=== PATIENT | female | born 1980 | race Caucasian/White ===

== ENCOUNTER → 2022-03-19 09:22 | Outpatient (CLI) | payer OTHER, SELFPAY ==
--- NOTE | 2022-03-19 09:31 | US_ITS ---
FINAL REPORT CLINICAL HISTORY: ABD PAIN FINDINGS: Sonographic images of the right upper quadrant were obtained. The pancreas is partially obscured. There is a 2.5 cm hepatic cyst. There are multiple hepatic masses measuring up to 5.7 cm which do not appear to be cysts, hepatic metastases or other neoplasm is not excluded. There are right renal cysts measuring 1.3 cm and 1.4 cm. The gallbladder surgically absent. The common duct measures 4 mm. IMPRESSION: Hepatic masses, may represent hepatic metastases or other neoplasm. This could be further evaluated with liver mass protocol CT or MRI. Hepatic and renal cysts. Patient's nurse, Viviane Rausch was notified of findings on 03/19/2022 at 12:10 p.m. Reviewed, Interpreted and Dictated by Delfino Rodríguez III, MD Transcribed by Kavita Benavidez Authenticated and [facility]
--- NOTE | 2022-03-19 09:31 | US_ITS ---
FINAL REPORT CLINICAL HISTORY: IRREGULAR BLLEDING FINDINGS: Transvaginal sonographic images of the pelvis were obtained. The uterus measures 8.5 x 3.7 x 5.3 cm. The right ovary measures 2.4 x 1.9 x 1.5 cm. The left ovary measures 3.4 x 2.0 x 1.4 cm. The endometrium measures 4 mm. Small follicles are seen in both ovaries. Flow is seen to both ovaries. IMPRESSION: Small follicles bilaterally. Reviewed, Interpreted and Dictated by Delfino Rodríguez III, MD Transcribed by Kavita Benavidez Authenticated and [facility]
[2022-03-19 12:23] LABS: Basophils # 0.1 K/mm3 (0-0.2); Basophils % 1.4 % (0.1-2.0); Eosinophils # 0.1 K/mm3 (0.0-0.4); Eosinophils % 1.2 % (0.1-12.0); Hematocrit 45.3 % (37.0-47.0); Hemoglobin 14.6 g/dL (12.2-16.2); Lymphocytes # 2.4 K/mm3 (0.7-4.5); Lymphocytes % 30.4 % (10-50); Mean Corpuscular HGB Conc 32.2 g/dL (31.8-35.4); Mean Corpuscular Hemoglobin 30.1 pg (27.0-31.2); Mean Corpuscular Volume 93.5 fl (81-99); Monocytes # 0.4 K/mm3 (0.1-1.0); Monocytes % 4.8 % (1.7-9.3); Neutrophils # 4.9 K/mm3 (1.8-7.8); Neutrophils % 62.1 % (37.0-80.0); Platelet Count 357 K/mm3 (142-424); Red Blood Count 4.84 M/mm3 (4.20-5.40); Red Cell Distribution Width 14.3 % (11.5-17.5); White Blood Count 7.8 K/mm3 (4.8-10.8)
[2022-03-19 12:32] LABS: Alanine Aminotransferase 36 U/L (12-78); Albumin Level 4.5 g/dl (3.5-5.0); Alkaline Phosphatase 160 U/L (38-126); Anion Gap 9.5 mEq/L (5-15); Aspartate Amino Transferase 86 U/L (14-36); Bilirubin,Total 0.3 mg/dl (0.2-1.3); Blood Urea Nitrogen 11 mg/dl (7-17); Calcium 9.9 mg/dl (8.4-10.2); Carbon Dioxide 30 mmol/L (22.0-30.0); Chloride 105 mmol/L (98-107); Estimated Glomerular Filt Rate 93 ml/min (>60); GFR (African American) 112 ML/MIN (>60); Globulin 2.3 g/dL (1.3-3.2); Glucose 90 mg/dl (74-100); Potassium 4.5 mmoL/L (3.5-5.1); Sodium 140 mmol/L (136-145); Total Protein,Serum 6.8 g/dl (6.3-8.2)
[2022-03-19 12:33] LABS: Amylase 74 U/L (30-110); Lipase 163 U/L (23-300)
[2022-03-19 13:02] LABS: Thyroid Stimulating Hormone 0.59 uIU/mL (0.465-4.68)
[2022-03-20 10:13] LABS: FSH 6.7 mIU/mL (.); HIV Screen 4th Generation wRfx Non Reactive (Non Reactive); LH 8.7 mIU/mL (.); Progesterone 0.4 ng/mL (.)
[2022-03-24 02:18] LABS: ALT (SGPT) P5P 39 IU/L (0-40); Alpha 2-Macroglobulins, Qn 247 mg/dL (110-276); Apolipoprotein A-1 162 mg/dL (116-209); Bilirubin, Total 0.3 mg/dL (0.0-1.2); Fibrosis Score 0.22 (0.00-0.21); Fibrosis Stage F0-F1 (.); GGT 234 IU/L (0-60); Haptoglobin 175 mg/dL (33-278); Necroinflammat Activity Grade A0-A1 (.); Necroinflammat Activity Score 0.19 (0.00-0.17)
[2022-03-24 09:45] LABS: HCV Genotype Charge YES; Hepatitis C Genotype 1a (.)
[2022-03-30 21:28] LABS: Hep A Ab, Total NEGATIVE
[2022-03-30 21:29] LABS: Hep B Core Ab, Total NEGATIVE; Hep B Surface Ab, Qual NON REACTIVE; Hepatitis B Surface Antigen NEGATIVE; Hepatitis C Antibody >11.0
== END ==
PROVIDERS: Emergency Medicine; Obstetrics & Gynecology; PCP Nurse Practitioner Family; Visit Provider Nurse Practitioner Family
DX: R10.9 Unspecified abdominal pain (principal); B19.20 Unspecified viral hepatitis C without hepatic coma; N93.8 Other specified abnormal uterine and vaginal bleeding; F41.9 Anxiety disorder, unspecified
CPT/HCPCS: 36415; 76705; 76830; 80053; 81596; 82150; 83001; 83002; 83690; 84144; 84443; 85025; 86703; 86704; 86706; 86708; 87340; 87380; 87522; 87902; G0432

== ENCOUNTER → 2022-04-01 08:01 | Outpatient (CLI) | payer OTHER, SELFPAY | PROVIDERS: PCP Nurse Practitioner Family; Visit Provider Nurse Practitioner Family | DX: R93.2 Abnormal findings on diagnostic imaging of liver and biliary tract (principal) ==

== ENCOUNTER → 2022-04-07 09:54 | Outpatient (CLI) | payer OTHER, SELFPAY ==
--- NOTE | 2022-04-07 09:54 | MR_ITS ---
FINAL REPORT CLINICAL HISTORY: liver mass protocol swelling under right breast and pain x 2 weeks abnormal us pt also has hep c FINDINGS: Multiplanar MR imaging of the abdomen was performed without and with contrast. There are at least 10 solid hepatic masses. Largest mass measures up to 7 mm. These masses demonstrate peripheral enhancement on arterial phase which increases over time. These do not appear to represent hemangiomas. Differentials would be multifocal HCC versus metastatic disease. There is no evidence of biliary ductal dilatation. The gallbladder has an unremarkable appearance. There are numerous bilateral renal cysts. IMPRESSION: Multiple solid hepatic masses with differentials of multifocal HCC versus metastatic disease. Reviewed, Interpreted and Dictated by Delfino Rodríguez III, MD Transcribed by Ravi Taylor Authenticated and [facility]
== END ==
PROVIDERS: PCP Nurse Practitioner Family; Visit Provider Nurse Practitioner Family
DX: R93.2 Abnormal findings on diagnostic imaging of liver and biliary tract (principal)
CPT/HCPCS: 74183; A9576

== ENCOUNTER 2022-06-29 01:28 | Emergency (ER) | payer OTHER, SELFPAY ==
--- NOTE | 2022-06-29 01:25 | ECG_ITS ---
APPROVED REPORT Exam: Resting ECG HR:81 bpm ECG Measurements Heart Rate 81 AXES VA 117 P 43 QRSd 82 QRS 69 QT 377 T 32 QTc 414 Conclusion SINUS RHYTHM WITH SHORT VA INTERVAL BORDERLINE ECG UNCONFIRMED REPORT Electronically signed by : Efren Wall MD 06/29/2022 19:47:33
[2022-06-29 01:29] VITALS: BP 145/97; PULSE 89; RESP 16; TEMP 37.2; O2SAT 99; BMI 29.2
--- NOTE | 2022-06-29 01:59 | CT_ITS ---
PROCEDURE INFORMATION: Exam: CT Abdomen And Pelvis With Contrast Exam date and time: 06/29/2022 2:47 AM Age: 42 years old Clinical indication: Abdominal pain; Additional info: Neck pain/swelling. Possible infection TECHNIQUE: Imaging protocol: Computed tomography of the abdomen and pelvis with contrast. 3D rendering (Not supervised by radiologist): MIP and/or 3D reconstructed images were created by the technologist. Radiation optimization: All CT scans at this facility use at least one of these dose optimization techniques: automated exposure control; mA and/or kV adjustment per patient size (includes targeted exams where dose is matched to clinical indication); or iterative reconstruction. Contrast material: ISOVUE; Contrast volume: 100 ml; Contrast route: IV; REPORTING DATA: Count of CT and Cardiac NM exams in prior 12 months: This patient has received 2 known CTs and 0 known cardiac nuclear medicine studies in the 12 months prior to the current study. COMPARISON: MR ABDOMEN WO/W CON 04/07/2022 10:22 AM FINDINGS: Liver: Exam was performed in arterial phase which limits assessment of solid organs. There are numerous large lobulated masses throughout the liver. Allowing for differences in technique, these appear larger than on the prior exam in March of this year. Telegraph Inspector lesion in the posterior segment right hepatic lobe measures 8.1 cm in diameter, previously 6.4 cm on MR. Overall liver volume his increased. Liver measures 24 cm in length, previously 18 cm. The enlarged left hepatic lobe exerts mass effect on the stomach, pancreas, and to a lesser extent the kidneys. Gallbladder and bile ducts: Prior cholecystectomy. No biliary tree dilation. Pancreas: See Liver finding. Spleen: Normal. No splenomegaly. Adrenal glands: Normal configuration. Kidneys and ureters: See Liver finding. Stomach and bowel: See Liver finding. Appendix: Normal appendix is confirmed. Intraperitoneal space: No free air. No significant fluid collection. Vasculature: On this arterial phase exam, patency of the portal vein cannot be assured. Lymph nodes: No enlarged lymph nodes. Urinary bladder: Unremarkable as visualized. Reproductive: Physiologic appearance for age. Bones/joints: No destructive bony lesions are seen. Soft tissues: Multiple low-attenuation nodular foci are seen in the medullary pyramids of both kidneys compatible with cysts as demonstrated on prior MR. Tiny fat containing umbilical hernia. IMPRESSION: 1. Exam demonstrates substantial progression of hepatic multifocal primary or metastatic disease, now with severe hepatomegaly which has progressed when compared to the prior. The enlarged left hepatic lobe exerts mass effect on the stomach and pancreas which could be symptomatic. 2. Medullary cystic renal disease. Correlate with family history. 3. No findings of acute intra-abdominal infection. COMMENTS: Consistent with the [employer]'s Incidental Findings Committee white paper (J Am Ewa Radiol 2018): Any incidental renal lesion less than 1 cm or classified as too small to characterize, or any incidental cystic renal lesion characterized as simple-appearing, is likely benign. No follow-up imaging is recommended for these lesions per consensus recommendations based on imaging criteria.
--- NOTE | 2022-06-29 01:59 | CT_ITS ---
PROCEDURE INFORMATION: Exam: CT Neck With Contrast Exam date and time: 06/29/2022 2:52 AM Age: 42 years old Clinical indication: Neck pain; Additional info: Neck pain/swelling. Possible infection TECHNIQUE: Imaging protocol: Computed tomography of the neck with contrast. Radiation optimization: All CT scans at this facility use at least one of these dose optimization techniques: automated exposure control; mA and/or kV adjustment per patient size (includes targeted exams where dose is matched to clinical indication); or iterative reconstruction. Contrast material: ISOVUE; Contrast volume: 100 ml; Contrast route: IV; REPORTING DATA: Count of CT and Cardiac NM exams in prior 12 months: This patient has received 2 known CTs and 0 known cardiac nuclear medicine studies in the 12 months prior to the current study. COMPARISON: CT ANGIO CHEST PE PROTOCOL 06/29/2022 2:47 AM FINDINGS: Tubes, catheters and devices: Right internal jugular port type catheter is partly visualized. Brain: Visualized intracranial structures appear normal. Cerebral ventricles: Cavum septum flew system. Pharynx: Normal fossa of Rosenmuller. Normal tonsillar pillars. Larynx: Normal sharp epiglottis. Normal vocal folds. Prevertebral and retropharyngeal spaces: Unremarkable. Salivary glands: Normal. Glands are normal in size. Thyroid: Homogeneous thyroid. Lymph nodes: Unremarkable. No lymphadenopathy. Trachea: Visualized trachea is unremarkable. Lungs: 6 mm nodule noted in the right upper lobe. Bones/joints: Unremarkable. No acute fracture. Soft tissues: Unremarkable. No significant soft tissue swelling. IMPRESSION: 1. No site of infection is evident in the neck. Soft tissue planes are normal. No abnormal fluid collections or gas. 2. Incidental note made 6 mm right upper lobe nodule. For patients at low risk (minimal or absent history of smoking and of other known risk factors), no routine follow-up is indicated. For patients at high risk (history of smoking or of other known risk factors), consider optional CT Chest at 12 months. (Reference: Kelle) REFERENCES: Kelle Hernandez et al. Guidelines for Management of Incidental Pulmonary Nodules Detected on CT Images: From the Fleischner Society 2017. Radiology. 2017;284(1):228-243.
--- NOTE | 2022-06-29 01:59 | CT_ITS ---
PROCEDURE INFORMATION: Exam: CTA Chest With Contrast Exam date and time: 06/29/2022 2:47 AM Age: 42 years old Clinical indication: Pain; Chest pressure; Additional info: Chest pain. Neck pain/swelling. Possible infection TECHNIQUE: Imaging protocol: Computed tomographic angiography of the chest with contrast. 3D rendering (Not supervised by radiologist): MIP and/or 3D reconstructed images were created by the technologist. Radiation optimization: All CT scans at this facility use at least one of these dose optimization techniques: automated exposure control; mA and/or kV adjustment per patient size (includes targeted exams where dose is matched to clinical indication); or iterative reconstruction. Contrast material: ISOVUE; Contrast volume: 100 ml; Contrast route: INTRAVENOUS (IV); REPORTING DATA: Count of CT and Cardiac NM exams in prior 12 months: This patient has received 2 known CTs and 0 known cardiac nuclear medicine studies in the 12 months prior to the current study. COMPARISON: MR ABDOMEN WO/W CON 04/07/2022 10:22 AM FINDINGS: Tubes, catheters and devices: Right internal jugular port type catheter tip projects over the superior vena cava. Pulmonary arteries: Normal caliber pulmonary artery tree without visible filling defects. Aorta: Normal caliber thoracic aorta M without evidence of dissection. Lungs: There are multiple pulmonary nodules throughout both lungs. Vessel Scrapper nodule in the right upper lobe measures 6 mm in diameter. There is diffuse bronchial wall thickening with bronchial luminal narrowing. No airspace disease. Pleural spaces: Unremarkable. No pneumothorax. No pleural effusion. Heart: Heart size is normal. Lymph nodes: Unremarkable. No enlarged lymph nodes. Diaphragm: Tiny hiatal hernia. Bones/joints: No destructive bony lesions. Soft tissues: Unremarkable. IMPRESSION: 1. Normal thoracic aorta. No findings of acute pulmonary embolism. 2. Multiple pulmonary nodules are compelling for metastatic disease. 3. There are findings of acute bronchitis. No airspace disease to suggest secondary pneumonia.
[2022-06-29 02:00] VITALS: BP 142/96; PULSE 77; RESP 16; O2SAT 97
[2022-06-29 02:10] LABS: Coronavirus 19, PCR Not Detected (NotDetected); Influenza A, PCR Not Detected (NotDetected); Influenza B, PCR Not Detected (NotDetected)
[2022-06-29 02:12] LABS: Basophils # 0.1 K/mm3 (0-0.2); Basophils % 0.6 % (0.1-2.0); Eosinophils # 0.1 K/mm3 (0.0-0.4); Eosinophils % 0.4 % (0.1-12.0); Hematocrit 32.8 % (37.0-47.0); Hemoglobin 10.4 g/dL (12.2-16.2); Lymphocytes # 1.9 K/mm3 (0.7-4.5); Lymphocytes % 13.7 % (10-50); Mean Corpuscular HGB Conc 31.6 g/dL (31.8-35.4); Mean Corpuscular Hemoglobin 28.2 pg (27.0-31.2); Mean Corpuscular Volume 89.3 fl (81-99); Mean Platelet Volume 8.4 fl (7.4-10.4); Monocytes # 0.7 K/mm3 (0.1-1.0); Monocytes % 5.2 % (1.7-9.3); Neutrophils # 10.9 K/mm3 (1.8-7.8); Neutrophils % 80.2 % (37.0-80.0); Platelet Count 553 K/mm3 (142-424); Red Blood Count 3.67 M/mm3 (4.20-5.40); White Blood Count 13.6 K/mm3 (4.8-10.8)
[2022-06-29 02:14] LABS: Alanine Aminotransferase 24 U/L (12-78); Albumin Level 3.9 g/dl (3.5-5.0); Albumin/Globulin Ratio 1.4 (1.1-1.8); Alkaline Phosphatase 1341 U/L (38-126); Anion Gap 10.1 mEq/L (5-15); Aspartate Amino Transferase 128 U/L (14-36); Bilirubin,Total 0.8 mg/dl (0.2-1.3); Blood Urea Nitrogen 15 mg/dl (7-17); Calcium 8.8 mg/dl (8.4-10.2); Carbon Dioxide 28 mmol/L (22.0-30.0); Chloride 103 mmol/L (98-107); Creatinine Clearance Estimated 180 mL/min (50-200); Estimated Glomerular Filt Rate 136 ml/min (>60); GFR (African American) 165 ML/MIN (>60); Globulin 2.7 g/dL (1.3-3.2); Glucose 106 mg/dl (74-100); Lactic Acid 1.6 mmol/L (0.7-2.1); Potassium 4.1 mmoL/L (3.5-5.1); Sodium 137 mmol/L (136-145); Total Protein,Serum 6.6 g/dl (6.3-8.2)
[2022-06-29 02:19] LABS: C-Reactive Protein 5.6 mg/L (0-4)
[2022-06-29 02:30] VITALS: BP 132/92; PULSE 83; RESP 30; O2SAT 98
[2022-06-29 02:33] LABS: Procalcitonin 0.203 ng/mL (0.0-2.0)
[2022-06-29 02:39] LABS: Troponin I < 0.01 ng/ml (0.00-0.034)
--- NOTE | 2022-06-29 02:42 | PC.NURSE ---
patient gone to CT at this time.
[2022-06-29 02:49] LABS: Erythrocyte Sedimentation Rate 74 mm/hr (0-20)
[2022-06-29 02:58] LABS: Ammonia 18 umol/L (9-30)
--- NOTE | 2022-06-29 03:09 | PC.NURSE ---
in room with patient at this time.
--- NOTE | 2022-06-29 03:14 | HMH.EDGENADL ---
Discharge Plan Disposition Patient Disposition: Home, Self-Care Chief Complaint: PAIN Prescriptions Prescriptions: No Action No Known Home Medications Referrals Follow up/Referrals: Loraine Moore APRN [Primary Care Provider] - See instructions Clinical Impressions Clinical Impression: Liver masses, Abdominal pain Instructions Patient Instructions: DI for Acute Pain -- Adult Discharge ED Provider: Pankaj AGUILA)Rigoberto General Adult HPI General Chief complaint: PAIN Stated complaint: chest pain Time Seen by Provider: 06/29/22 03:14 Mode of Arrival: Ambulatory Source of Information: Patient, Spouse and Medical Record Limitations: No Limitations Description of Symptoms (Recalled from ER Triage Doc. by RN): 42 F presents with pain to her right neck and anterior chest wall r/t a port she had placed at for cancer treatment. Denies SOA or other cardiac complaints. NAD, VSS on arrival. Mild erythema and eccymosis noted to this area. Patient reports abdominal pain and swelling which isn't new; however, it's worsening. 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 She was sent home with Valium 5mg #5 and Oxycodone 5mg #25 which she is requesting refills for. These were filled on June 17 History of Present Illness HPI narrative: recent placed port rt ant chest about 7 days ago - pt has liver mets with possible primary gi - Onset (ago): hour(s) Location: chest Severity: moderate Associated symptoms: denies other symptoms Related Data Home Medications Medication Instructions Recorded Confirmed No Known Home Medications 06/29/22 06/29/22 Allergies Allergy/AdvReac Type Severity Reaction Status Date / Time tramadol Allergy Hives Verified 04/09/22 15:06 [facility] Disclaimer: The information contained in this section may have been updated after the patient was seen, as this information can be updated by other users. Medical History Anxiety Hepatitis C Hx of intravenous drug use, in remission Menorrhagia with irregular cycle Polymenorrhea Primary stress urinary incontinence Surgical History History of bilateral tubal ligation History of cholecystectomy Family History Father Cancer Diabetes Social History Smoking Status: Current every day smoker alcohol intake: never substance use type: former substance user and marijuana current occupational status: disabled Travel in the last 8 weeks: None household members: spouse housing: house marital status: life partner ROS Obtained: Yes All systems reviewed & no additional complaints except as documented Physical Exam General General appearance: alert Head Head exam: normocephalic Eye Eye exam: Present PERRL and EOMI; Absent scleral icterus ENT ENT exam: Present mucous membranes moist Neck Neck exam: Present trachea midline Respiratory Respiratory exam: Present other (dec bs bilat ); Absent respiratory distress Cardiovascular Cardiovascular exam: Present regular rate, systolic murmur and +S4 Abdominal Exam Abdominal exam: Present soft, tenderness and other (enlarged liver ) Abdominal tenderness: Present RUQ and moderate Extremities Exam Extremities exam: Absent joint swelling or calf tenderness Neurological Exam Neurological exam: Present alert, oriented X3 and CN II-XII intact; Absent motor sensory deficit Psychiatric Psychiatric exam: Present normal affect Skin Skin exam: Absent rash Medical Decision Making Medical Records Medical records reviewed: Yes I reviewed the patient's medical records. Parviz Inquiry Pt receiving controlled substance: No Vital Signs: 06/29/22 01:29 06/29/22 02:00 06/29/22 02:30 Temperature 9
[2022-06-29 03:18] LABS: INR 0.96 (0.9-1.1); Prothrombin Time 10.4 seconds (10.1-12.5)
[2022-06-29 04:50] VITALS: BP 133/92; PULSE 82; RESP 17; TEMP 36.9; O2SAT 96
== END 2022-06-29 05:09 | disposition home or self-care (01) ==
PROVIDERS: Emergency Provider Emergency Medicine; PCP Nurse Practitioner Family
DX: R07.9 Chest pain, unspecified (principal); R10.9 Unspecified abdominal pain; C78.7 Secondary malignant neoplasm of liver and intrahepatic bile duct
CPT/HCPCS: 70491; 71275; 74177; 80053; 82140; 83605; 84145; 84484; 85025; 85610; 85651; 86140; 93005; 96360; 96374; 96375; 99285; C9803; J2405; Q9967; U0003; U0005